=== PATIENT | female | born 1940 | race African-American/Black ===

== ENCOUNTER 2019-07-03 17:53 | Emergency (ER) | payer OTHER ==
[~2019-07-03] VITALS: Ht 157.5 cm; Wt 64.0 kg
[2019-07-03 20:08] VITALS: BP 149/63
[2019-07-03 21:23] LABS: BASOPHILS % 0.8 % (0.0-2.0); EOSINOPHILS % 2.1 % (0.0-5.0); HEMATOCRIT. 31.7 % (36.0-48.0); HEMOGLOBIN. 10.6 g/dL (12.0-16.0); LYMPHOCYTES % 20.6 % (20.0-50.0); MEAN CORPUSCULAR HEMOGLOBIN 29.3 pg (28.0-32.0); MEAN CORPUSCULAR VOLUME 87.8 fL (81.0-99.0); MEAN PLATELET VOLUME 7.9 fl (7.4-10.4); MONOCYTES % 6.7 % (2.0-8.0); NEUTROPHILS % 69.8 % (40.0-76.0); PLATELET 305 x1000/uL (130-400); RED BLOOD CELL COUNT 3.61 mill/uL (4.2-5.4); RED CELL DISTRIBUTION WIDTH 15.2 % (11.6-14.6)
[2019-07-03 21:26] LABS: CHLORIDE 105 mEq/L (98-107)
[2019-07-03 21:28] LABS: INR 1.1
== END 2019-07-03 22:45 | disposition left against medical advice (07) ==
LOC: EDSEX 17:53 → ER 17:53 → CANBEDREQ 07-04 21:13
DX: N28.9 Disorder of kidney and ureter, unspecified (principal); I10 Essential (primary) hypertension; E11.9 Type 2 diabetes mellitus without complications; Z85.9 Personal history of malignant neoplasm, unspecified
CPT/HCPCS: 36415; 71045; 80053; 84484; 85025; 93005; 99285

== ENCOUNTER 2020-02-26 06:03 | Inpatient (IN) | payer OTHER, MEDICAID ==
[~2020-02-26] VITALS: Ht 154.9 cm; Wt 95.3 kg
[2020-02-26] MEDS ORDERED: IPRATROPIUM BROMIDE (0.02%) 0.5MG/2.5ML NEB HHN STA (06:20)
[2020-02-26] MEDS ORDERED: ALBUTEROL (0.083%) 2.5MG/3ML NEB HHN STA (06:20)
[2020-02-26] MEDS ORDERED: METHYLPREDNISOLONE SOD SUCC 125 MG/2 ML VIAL IV STA (06:20)
[2020-02-26] MEDS ORDERED: NITROGLYCERIN 0.1MG/HR PATCH TOP ONE (07:15)
[2020-02-26] MEDS ORDERED: NITROGLYCERIN 0.4MG TABLET SL SL ONE (07:15)
[2020-02-26 08:54] LABS: BASOPHILS % 0.4 % (0.0-2.0); EOSINOPHILS % 0.4 % (0.0-5.0); HEMATOCRIT. 28.5 % (36.0-48.0); HEMOGLOBIN. 9.3 g/dL (12.0-16.0); LYMPHOCYTES % 15.1 % (20.0-50.0); MEAN CORPUSCULAR HEMOGLOBIN 28.8 pg (28.0-32.0); MEAN CORPUSCULAR VOLUME 87.8 fL (81.0-99.0); MEAN PLATELET VOLUME 7.9 fl (7.4-10.4); MONOCYTES % 3.3 % (2.0-8.0); NEUTROPHILS % 80.8 % (40.0-76.0); PLATELET 381 x1000/uL (130-400); RED BLOOD CELL COUNT 3.25 mill/uL (4.2-5.4); RED CELL DISTRIBUTION WIDTH 19.4 % (11.6-14.6)
[2020-02-26 09:03] LABS: CHLORIDE 107 mEq/L (98-107)
[2020-02-26] MEDS ORDERED: NITROGLYCERIN 50MG PREMIX 250 ML IV ONE (09:30)
[2020-02-26 10:18] LABS: BG BASE EXCESS -2.9 mmol/L (-2.0-2.0); BG CARBOXYHEMOGLOBIN 0.7 % (0.5-1.5); BG DEOXYHEMOGLOBIN 3.6 % (0.0-5.0); BG FRACTION INSPIRED OXYGEN 28; BG HCO3 ACT 22.2 mmol/L (22.0-26.0); BG METHEMOGLOBIN 0.3 % (0.0-1.5); BG OXYGEN SATURATION 96.4 % (92.0-98.5); BG OXYHEMOGLOBIN 95.4 % (94.0-97.0); BG PCO2 39.4 mmHg (35.0-45.0); BG PH 7.368 (7.350-7.450); BG PO2 91.9 mmHg (75.0-100.0); BG SAMPLE SITE RIGHT BRACHIAL; BG TOTAL HEMOGLOBIN 10.5 g/dL (12.0-18.0); BG VENT MODE NASAL CANNULA
[2020-02-26] MEDS ORDERED: ENOXAPARIN 100MG/ML SYR SUBCUT ONE (11:00)
[2020-02-26] MEDS ORDERED: ASPIRIN 81MG TABLET PO ONE (11:00)
[2020-02-26] MEDS ORDERED: ALBUTEROL 6.7GM HFA INHALER ORI PRN (16:00)
[2020-02-26] MEDS ORDERED: CLONIDINE 0.1MG TABLET PO PRN (16:00)
[2020-02-26] MEDS ORDERED: DEXTROSE 50% WATER 50ML SYRINGE IV PRN (16:00)
[2020-02-26] MEDS ORDERED: ACETAMINOPHEN 325MG TABLET PO PRN (16:00)
[2020-02-26] MEDS ORDERED: FUROSEMIDE 40MG/4ML VIAL IVP NR (16:30)
[2020-02-26] MEDS ORDERED: LEVOFLOXACIN 500MG PREMIX 100 ML IV NR (17:00)
[2020-02-26] MEDS ORDERED: ENOXAPARIN 30MG/0.3ML SYR SUBCUT SCH (17:00)
[2020-02-26] MEDS: BLOOD SUGAR DIAGNOSTIC STRIP TEST SCH (17:29)
[2020-02-26 20:39] LABS: CLARITY URINE CLEAR (CLEAR); COLOR URINE YELLOW (YELLOW); KETONES URINE NEGATIVE (NEGATIVE); LEUKOCYTE ESTERASE URINE NEGATIVE (NEGATIVE); NITRITE URINE NEGATIVE (NEGATIVE); OCCULT BLOOD URINE NEGATIVE (NEGATIVE); PROTEIN URINE 3+ (NEGATIVE); SPECIFIC GRAVITY URINE 1.019 (1.005-1.030); UROBILINOGEN URINE 0.2 E.U./dL (0.2-1.0)
[2020-02-27] MEDS: AMLODIPINE 10MG TABLET PO SCH ×2 (03:20→09:59)
[2020-02-27] MEDS: HYDRALAZINE HCL 100MG TABLET PO SCH ×3 (03:21→20:16)
[2020-02-27] MEDS: BLOOD SUGAR DIAGNOSTIC STRIP TEST SCH ×5 (03:40→20:27)
[2020-02-27] MEDS: INSULIN LISPRO 100 UNITS/ML SUBCUT SCH ×5 (03:40→20:27)
[2020-02-27] MEDS ORDERED: ASPIRIN 81MG TABLET PO SCH (09:00)
[2020-02-27] MEDS: ONDANSETRON HCL 4MG/2ML INJ IV PRN (09:59)
[2020-02-27 10:05] VITALS: BP 181/64
[2020-02-27 11:13] VITALS: BP 181/67
[2020-02-27] MEDS ORDERED: IPRATROPIUM/ALBUTEROL 0.5-3(2.5)MG/3ML NEB HHN PRN (13:00)
[2020-02-27 13:40] LABS: BASOPHILS % 0.6 % (0.0-2.0); EOSINOPHILS % 1.7 % (0.0-5.0); HEMATOCRIT. 29.4 % (36.0-48.0); HEMOGLOBIN. 9.5 g/dL (12.0-16.0); LYMPHOCYTES % 21.9 % (20.0-50.0); MEAN CORPUSCULAR HEMOGLOBIN 28.7 pg (28.0-32.0); MEAN CORPUSCULAR VOLUME 88.5 fL (81.0-99.0); MEAN PLATELET VOLUME 7.9 fl (7.4-10.4); NEUTROPHILS % 69.8 % (40.0-76.0); PLATELET 371 x1000/uL (130-400); RED BLOOD CELL COUNT 3.32 mill/uL (4.2-5.4); RED CELL DISTRIBUTION WIDTH 19.1 % (11.6-14.6)
[2020-02-27] MEDS ORDERED: CLONIDINE 0.1MG TABLET PO SCH (14:00)
[2020-02-27] MEDS: LEVOFLOXACIN 250MG PREMIX 50 ML IV SCH (14:00)
[2020-02-27 16:00] VITALS: BP 188/80
[2020-02-27] MEDS ORDERED: LEVOFLOXACIN 250MG PREMIX 50 ML IV SCH (17:00)
[2020-02-27] MEDS ORDERED: ENOXAPARIN 40MG/0.4ML SYR SUBCUT SCH (17:00)
[2020-02-27 20:00] VITALS: BP 171/69
[2020-02-27] MEDS ORDERED: ATORVASTATIN CALCIUM 20MG TABLET PO SCH (21:00)
[2020-02-27] MEDS ORDERED: TRAZODONE HCL 50MG TABLET PO SCH (21:00)
[2020-02-27] MEDS: CLONIDINE 0.2MG TABLET PO SCH (22:25)
[2020-02-28] VITALS: BP 130/51
[2020-02-28 04:00] VITALS: BP 141/62
[2020-02-28] MEDS: HYDRALAZINE HCL 100MG TABLET PO SCH ×2 (06:01→15:56)
[2020-02-28] MEDS: CLONIDINE 0.2MG TABLET PO SCH ×2 (06:01→14:00)
[2020-02-28] MEDS: BLOOD SUGAR DIAGNOSTIC STRIP TEST SCH ×2 (07:30→12:51)
[2020-02-28 08:00] VITALS: BP 146/60
[2020-02-28] MEDS: INSULIN LISPRO 100 UNITS/ML SUBCUT SCH ×2 (08:47→12:47)
[2020-02-28] MEDS: AMLODIPINE 10MG TABLET PO SCH ×2 (08:58→12:48)
[2020-02-28] MEDS ORDERED: ASPIRIN 81MG TABLET PO SCH (09:00)
[2020-02-28] MEDS ORDERED: CLOPIDOGREL 75MG TABLET PO SCH (09:00)
[2020-02-28] MEDS: ONDANSETRON HCL 4MG/2ML INJ IV PRN (09:03)
[2020-02-28] MEDS ORDERED: LEVO500T2 MT (11:52)
[2020-02-28 12:00] VITALS: BP 173/73
[2020-02-28] MEDS ORDERED: FURO-151 MT (12:17)
[2020-02-28] MEDS: LEVOFLOXACIN 250MG PREMIX 50 ML IV SCH (14:16)
[2020-02-28 15:58] VITALS: BP 157/70
[2020-02-28 16:00] VITALS: BP 132/51
[2020-02-28] MEDS ORDERED: ENOXAPARIN 30MG/0.3ML SYR SUBCUT SCH (18:00)
== END 2020-02-28 18:37 | disposition home or self-care (01) | DRG 193 ==
LOC: ER 06:13 → 5EST 13:44 → EDBEDREQSVC 13:53 → ENRESERV 02-27 07:57 → 5EST 02-27 09:04
PROVIDERS: ADMIT Internal Medicine; ATTEND Internal Medicine
PROC: 5A09357 Assistance with Respiratory Ventilation, Less than 24 Consecutive Hours, Continuous Positive Airway Pressure (ICD-10-PCS; principal; 2020-02-26)
DX: J18.9 Pneumonia, unspecified organism (principal); J96.01 Acute respiratory failure with hypoxia; N17.0 Acute kidney failure with tubular necrosis; J44.1 Chronic obstructive pulmonary disease with (acute) exacerbation; E44.0 Moderate protein-calorie malnutrition; I24.8 Other forms of acute ischemic heart disease; J44.0 Chronic obstructive pulmonary disease with (acute) lower respiratory infection; I10 Essential (primary) hypertension; E78.5 Hyperlipidemia, unspecified; E66.9 Obesity, unspecified; D64.9 Anemia, unspecified; E11.9 Type 2 diabetes mellitus without complications; Z20.828 Contact with and (suspected) exposure to other viral communicable diseases; Z86.73 Personal history of transient ischemic attack (TIA), and cerebral infarction without residual deficits; Z88.0 Allergy status to penicillin; Z88.6 Allergy status to analgesic agent; Z88.5 Allergy status to narcotic agent; Z71.3 Dietary counseling and surveillance; Z68.39 Body mass index [BMI] 39.0-39.9, adult
CPT/HCPCS: 36415; 36600; 71045; 78582; 80048; 80053; 80061; 81003; 82375; 82805; 82962; 83880; 84443; 84484; 85025; 85379; 87426; 93005; 93306; 96365; 97162; 99291; A9558; J1650; J1815; J1940; J1956; J2405; J2930; J3490

== ENCOUNTER 2021-02-16 16:08 | Emergency (ER) | payer OTHER, MEDICAID ==
[~2021-02-16] VITALS: Ht 167.6 cm; Wt 73.0 kg
[~2021-02-16 16:08] MED LIST: FURO-151 MT; LEVO500T2 MT
[2021-02-16 17:30] LABS: BASOPHILS % 0.6 % (0.0-2.0); HEMATOCRIT. 39.6 % (36.0-48.0); HEMOGLOBIN. 12.7 g/dL (12.0-16.0); LYMPHOCYTES % 35.9 % (20.0-50.0); MEAN CORPUSCULAR VOLUME 93.5 fL (81.0-99.0); MEAN PLATELET VOLUME 7.6 fl (7.4-10.4); MONOCYTES % 10.7 % (2.0-8.0); NEUTROPHILS % 49.8 % (40.0-76.0); PLATELET 184 x1000/uL (130-400); RED BLOOD CELL COUNT 4.23 mill/uL (4.2-5.4); RED CELL DISTRIBUTION WIDTH 19.8 % (11.6-14.6)
[2021-02-16 17:36] LABS: CHLORIDE 102 mEq/L (98-107)
[2021-02-16] MEDS ORDERED: ASPIRIN 325MG EC TABLET PO ONE (19:15)
[2021-02-16 19:30] VITALS: BP 139/51
== END 2021-02-16 20:00 | disposition left against medical advice (07) ==
LOC: ER 16:08
DX: R55 Syncope and collapse (principal); R41.82 Altered mental status, unspecified; E11.22 Type 2 diabetes mellitus with diabetic chronic kidney disease; I12.0 Hypertensive chronic kidney disease with stage 5 chronic kidney disease or end stage renal disease; N18.6 End stage renal disease; I69.351 Hemiplegia and hemiparesis following cerebral infarction affecting right dominant side; J44.9 Chronic obstructive pulmonary disease, unspecified; Z99.2 Dependence on renal dialysis; I48.91 Unspecified atrial fibrillation; Z79.01 Long term (current) use of anticoagulants; Z88.5 Allergy status to narcotic agent; Z88.0 Allergy status to penicillin; Z99.3 Dependence on wheelchair
CPT/HCPCS: 36415; 71045; 80053; 83880; 84484; 85025; 93005; 99285